=== PATIENT | female | born 1995 | race Caucasian/White ===

== ENCOUNTER 2019-05-11 22:35 | Emergency (ER) | payer OTHER ==
[~2019-05-11] VITALS: Ht 157.5 cm; Wt 40.4 kg
== END 2019-05-12 02:22 | disposition home or self-care (01) ==
LOC: ER 22:35
DX: S00.83XA Contusion of other part of head, initial encounter (principal); S00.532A Contusion of oral cavity, initial encounter; M54.2 Cervicalgia; W01.198A Fall on same level from slipping, tripping and stumbling with subsequent striking against other object, initial encounter; Y93.89 Activity, other specified; Y92.69 Other specified industrial and construction area as the place of occurrence of the external cause; Y99.8 Other external cause status

== ENCOUNTER → 2019-10-09 | Emergency (ER) | payer OTHER ==
[~2019-10-09] VITALS: Ht 160 cm; Wt 42.2 kg
[~2019-10-09] MED LIST: CLEOCIN PA75 MG/5 ML PO
== END | disposition home or self-care (01) ==
LOC: ER 20:08
DX: K04.7 Periapical abscess without sinus (principal)